=== PATIENT | male | born 1965 | race Caucasian/White ===

== ENCOUNTER 2023-12-31 12:43 | Emergency (ER) | payer MEDICAID, SELFPAY ==
[2023-12-31 12:35] VITALS: BP 119/79; PULSE 93; RESP 18; TEMP 36.4; O2SAT 99
[2023-12-31 12:39] VITALS: RESP 14
--- NOTE | 2023-12-31 13:06 | ED.GENADUL_ITS ---
Discharge Plan Disposition Patient Disposition: Home Condition: Stable Discharge Details Clinical Impression: Dizziness of unknown cause, Sciatica Primary Care Provider: Unknown,Unknown ED Provider: Severiano Palacios Home Meds and New Rx's Prescriptions: New methocarbamol 750 mg tablet 1,500 mg PO QID PRNQty: 90 0RF diclofenac sodium 1 % gel 2 g topical QID Qty: 100 0RF Rx Instructions: apply to single elbow, wrist or hand; for hand includes palm/fingers/back of hand prednisone 20 mg tablet 40 mg PO DAILY 6 Days Qty: 12 0RF Discharge Instructions Instructions: Diclofenac (Topical), Methocarbamol, Prednisone, Dizziness, Adult ED, Sciatica ED Additional Instructions: You were seen in the emergency department for your dizziness of unknown cause, this is not a cardiac cause of dizziness and your neurological exam is normal. I suspect this is a side effect of your long-acting Suboxone. Your EKG is negative and your blood work is all relatively normal, you may be mildly dehydrated. Your low back pain and numbness going down your leg is a pinched ne rve in your back called sciatica. Please use therapeutic dosing of Tylenol (acetamenophen) & Advil (ibuprofen) in an alternating fashion as follows: Take 1000mg of Tylenol every 6 hours without missing doses- that is 4 times per day. Cora in between the Tylenol dosings, take 400-600mg of Advil also on a 6 hour schedule, that is also 4 times per day. The daily maximum dosing of Tylenol is 4000mg, and the daily maximum dosing of Advil is 2400mg. This is safe to do for weeks. Please note that some common cold medications & prescription pain medications may contain acetamenophen and you need to read OTC drug labels and factor that in to maximum daily dosings. He may take the prescribed methocarbamol which is a muscle relaxer to help with your sciatica pain, you may apply an [id number] lidocaine patch to the area of pain for 12 hours each day, apply [id number] Voltaren gel to the area of pain each day for 12 hours. Perform gentle heat and massage to the area. The most definitive care for sciatica is following up with physical therapy, I have attached offices you may follow-up with. I have also sent a short burst of prednisone to help with your low back pain- start this medicine TOMORROW. Stand Alone Forms: Physical Therapy Referral Discharge Data Discharge Date/Time-TO BE ENTERED AT DEPARTURE: 12/31/23 15:27 HPI General Date/Time Provider Initiated Documentation: 12/31/23 12:49 . HPI Narrative: 58 year-old male presents to ED today by EMS with a chief complaint of dizziness, fatigue since starting subQ injected suboxone at [facility] on the - also states having pain in L gluteal area that travels down his leg with onset the past couple days. Quality described as generalized dizziness, no radiation to urinary retention, bowel incontinence, back pain with fever, midline back pain, inability to ambulate, chest pain, shortness of breath, diaphoresis, cough. Severity is described as severe. Palliating factors include nothing specific. Provoking factors include nothing specific. Events leading up to the incident/Associated Symptoms: Patients first dose of injected suboxone was the , no prior exposure to long-acting MAT drugs. Patient not anticoagulated. Related Data Home Medications Medication Instructions Recorded Confirmed diclofenac sodium 1 % topical gel 2 g topical QID #100 grams 12/31/23 methocarbamol 750 mg tablet 1,500 mg (2 x 750 mg) PO QID PRN 12/31/23 #90 tabs prednisone 20 mg tablet 40 mg (2 x 20 mg) PO DAILY 6 days 12/31/23 #12 tabs Previous Rx's Medication Instructions Recorded diclofenac sodium 1 % topical gel 2 g topical QID #100 grams 12/31/23 methocarbamol 750 mg tablet 1,500 mg (2 x 750 mg) PO QID PRN 12/31/23 #90 tabs prednisone 20 mg tablet 40 mg (2 x 20 mg) PO DAILY 6 days 12/31/23 #12 tabs General Stated Complaint: Dizzy/Sync RONNA: 3 Review of Systems All systems reviewed & are unremarkable except as noted in HPI and below Exam Narrative Exam Narrative: GENERAL APPEARANCE: Well-nourished, non-toxic, awake and alert, atraumatic, no acute distress. SKIN: Warm, pink, dry, intact, without rashes/lesions/ulcerations. HEAD: Normocephalic, atraumatic, normal hair distribution for gender/age. EYES: Pupils PERRLA, EOMs intact without nystagmus, normal conjunctiva, no exudates on lids/lashes. ENT: Nares patent, no circumoral cyanosis, no facial swelling NECK: Supple, trachea midline, painless cervical ROM. LUNGS/CHEST: Lungs CTA bilaterally, non-labored respirations, normal A/P diameter, symmetrical expansion, no chest wall deformity HEART (CV/PV): Regular rate and rhythm without murmur, no peripheral edema, no JVD. ABDOMEN: Soft, non-distended, no guarding. MSK: Normal ROM, no swelling/deformity to bilateral UEs or LEs, moving all extremities without weakness, no cyanosis, spine midline without tenderness, normal curvature. NEURO: Mental Status AAOx4 - alert to person, place, time, events No facial droop, no forehead involvement. Motor: No focal weakness - strength 5/5 in bilateral UEs and LEs, proximal and distal, symmetric. Sensory: sensation intact to light touch globally. Gait normal: patient ambulated without ataxia into ED room. PSYCH: euthymic, cooperative, pleasant, appropriate speech Course Vital Signs Vital signs: Vital Signs Temperature 36.4 C 12/31/23 12:35 Pulse 93 H 12/31/23 12:35 Respiratory Rate 18 12/31/23 12:35 Blood Pressure 119/79 12/31/23 12:35 Pulse Oximetry 99 12/31/23 12:35 Temperature 36.4 C 12/31/23 12:35 Temperature Source Skin 12/31/23 12:35 Pulse 93 H 12/31/23 12:35 Respiratory Rate 14 12/31/23 12:39 Respiratory Effort Normal, Non-Labored 12/31/23 12:39 Respiratory Depth Normal 12/31/23 12:39 Respiratory Pattern Normal 12/31/23 12:39 Blood Pressure 119/79 12/31/23 12:35 Blood Pressure Position Sitting 12/31/23 12:35 Pulse Oximetry 99 12/31/23 12:35 Oxygen Delivery Method Room Air 12/31/23 12:35 Oxygen Flow Rate 0 12/31/23 12:35 Medical Decision Making This dictation utilizes [id number]-by-[id number] dictation software and may contain unedited grammatical errors. 58 year-old male presents to ED today by EMS with a chief complaint of dizziness, fatigue since starting subQ injected suboxone at [facility] on the - also states having pain in L gluteal area that travels down his leg with onset the past couple days. Quality described as generalized dizziness, no radiation to urinary retention, bowel incontinence, back pain with fever, midline back pain, inability to ambulate, chest pain, shortness of breath, diaphoresis, cough. Severity is described as severe. Palliating factors include nothing specific. Provoking factors include nothing specific. Events leading up to the incident/Associated Symptoms: Patients first dose of injected suboxone was the nd, no prior exposure to long-acting MAT drugs. Patients' medical history: Polysubstance abuse, denies cardiac history. Family and social history: States no recent IVDU. Pertinent exam findings / vital signs include tenderness in the left gluteal region and sciatic distribution causing radicular pain, strength 5/5 in lower extremities, sensation intact, no saddle anesthesia, benign cardiopulmonary exam, benign abdomen, nontoxic vitals. Differential / pathologies of concern include sciatica. Diagnostic studies of: -CBC, CMP, troponin I, BNP, TSH, magnesium, urinalysis, UDS, EKG. -CBC shows No leukocytosis, mild anemia 10.8 -CMP shows mild elevation of BUN without MARGIE -TSH within normal limits -Troponin negative, BNP negative -UA benign -UDS positive for THC -EKG shows sinus rhythm at 82 bpm with P waves followed by narrow complex QRS with normal axis, good R wave progression, no T wave abnormalities, no ST changes of ischemia, normal QT QTc Interventions of: -PO Tylenol, Toradol, Cyclobenz, Lidoderm TOP, Prednisone PO. ED Course/Assessment/Plan: 58-year-old male presents by EMS for questionable dizzy spells, he is neuro intact, he recently started monthly injections of Sublocade, he is also end orsing left gluteal pain that radiates down his leg consistent with sciatica. His EKG is benign, cardiac workup is negative with reliable onset, CMP shows mild elevation of BUN and suspect possible dehydration, UDS is positive for THC, patient had no focal neurodeficits whatsoever, had completely stable vitals throughout the visit and I do not suspect any acute neurological or cardiac pathology for this subjective dizzy spells- question side effect of long-acting sublocade. Around 1510 the nurses reevaluated the patient and he stated he was having a dizzy spell, he grabbed the side of the bed and proceeded to voluntarily convulse but remained responsive without any change in his vital signs during all of this or his level of responsiveness, quickly subsided he was noted to have anxiety suspect possible pseudoseizure. Findings not consistent with cardiac syncope, seizure, neurological pathology. Disposition of Dizziness of Unknown Cause, Sciatica. Patient verbalized understanding of the plan and return to ED criteria and engaged in shared decision making. Medical Records Medical records reviewed: Yes I reviewed the patient's medical records. Lab Data Lab results reviewed: Yes I reviewed the patient's lab results. Labs: Laboratory Tests Range/Units 12/31/23 12/31/23 12/31/23 13:40 13:40 13:40 WBC (4.4-10.8) 10^3/uL 7.49 RBC (4.36-5.78) 10^6/uL 3.82 L Hgb (13.5-17.5) g/dL 10.8 L Hct (40.0-50.0) % 34.8 L MCV (80-95) fL 91 MCH (27.0-33.0) pg 28.3 MCHC (32.0-36.0) % 31.0 L RDW (11.8-14.1) % 14.3 H Plt Count (130-400) 10^3/uL 188 MPV (8.0-11.0) fL 8.8 Immature Gran % % 1.1 Neutrophils % % 60.9 Lymphocytes % % 20.0 Monocytes % % 13.2 Eosinophils % % 4.1 Basophils % % 0.7 Nucleated RBC % (0.0-0.3) % 0.0 Absolute Neutrophils (1.2-6.7) 10^3/uL 4.56 Absolute Lymphocytes (1.2-3.4) 10^3/uL 1.50 Absolute Monocytes (0.1-0.8) 10^3/uL 0.99 H Absolute Eosinophils (0.0-0.7) 10^3/uL 0.31 Absolute Basophils (0.0-0.2) 10^3/uL 0.05 Sodium (136-145) mmol/L 141 Potassium (3.5-5.1) mmol/L 4.2 Chloride (98-107) mmol/L 104 Carbon Dioxide (21.0-32.0) mmol/L 31.8 Anion Gap (3-11) mmol/L 5.2 BUN (7-18) mg/dL 22 H Creatinine (0.70-1.30) mg/dL 0.8 Est GFR (CKD-EPI 2020) (mL/min/1.73m2) 103.87 Glucose (74-106) mg/dL 112 H Calcium (8.5-10.1) mg/dL 8.8 Magnesium (1.8-2.4) mg/dL 1.8 Total Bilirubin (0.2-1.0) mg/dL 0.23 AST (15-37) U/L 26 ALT (16-63) U/L 61 Alkaline Phosphatase (46-116) U/L 87 Troponin I (< or =60) ng/L < 50 NT-Pro-B Natriuret Pep (<300) pg/mL 43 Cancelled Total Protein (6.4-8.2) g/dL 6.2 L Albumin (3.4-5.0) g/dL 3.1 L TSH (0.36-3.74) uIU/mL 1.62 Cancelled Urine Color (Yellow) Urine Clarity (Clear) Urine pH (5-8) Ur Specific [place] (1.005-1.025) Urine Protein (Neg-Trace) mg/dL Urine Ketones (Negative) mg/dL Urine Blood (Negative) Urine Nitrite (Negative) Urine Bilirubin (Negative) Urine Urobilinogen (Up to 0.2) mg/dL Ur Leukocyte Esterase (Negative) Urine Glucose (Negative) mg/dL Urine Opiates Screen (Negative) Urine Methadone Screen (Negative) Ur Barbiturates Screen (Negative) Ur Tricyclics Screen (Negative) Ur Amphetamines Screen (Negative) U Benzodiazepines Scrn (Negative) Urine Cocaine Screen (Negative) Ur THC Screen (Negative) Range/Units 12/31/23 13:55 WBC (4.4-10.8) 10^3/uL RBC (4.36-5.78) 10^6/uL Hgb (13.5-17.5) g/dL Hct (40.0-50.0) % MCV (80-95) fL MCH (27.0-33.0) pg MCHC (32.0-36.0) % RDW (11.8-14.1) % Plt Count (130-400) 10^3/uL MPV (8.0-11.0) fL Immature Gran % % Neutrophils % % Lymphocytes % % Monocytes % % Eosinophils % % Basophils % % Nucleated RBC % (0.0-0.3) % Absolute Neutrophils (1.2-6.7) 10^3/uL Absolute Lymphocytes (1.2-3.4) 10^3/uL Absolute Monocytes (0.1-0.8) 10^3/uL Absolute Eosinophils (0.0-0.7) 10^3/uL Absolute Basophils (0.0-0.2) 10^3/uL Sodium (136-145) mmol/L Potassium (3.5-5.1) mmol/L Chloride (98-107) mmol/L Carbon Dioxide (21.0-32.0) mmol/L Anion Gap (3-11) mmol/L BUN (7-18) mg/dL Creatinine (0.70-1.30) mg/dL Est GFR (CKD-EPI 2020) (mL/min/1.73m2) Glucose (74-106) mg/dL Calcium (8.5-10.1) mg/dL Magnesium (1.8-2.4) mg/dL Total Bilirubin (0.2-1.0) mg/dL AST (15-37) U/L ALT (16-63) U/L Alkaline Phosphatase (46-116) U/L Troponin I (< or =60) ng/L NT-Pro-B Natriuret Pep (<300) pg/mL Total Protein (6.4-8.2) g/dL Albumin (3.4-5.0) g/dL TSH (0.36-3.74) uIU/mL Urine Color (Yellow) Yellow Urine Clarity (Clear) Sl Cloudy Urine pH (5-8) 7.0 Ur Specific [place] (1.005-1.025) 1.020 Urine Protein (Neg-Trace) mg/dL Negative Urine Ketones (Negative) mg/dL Negative Urine Blood (Negative) Negative Urine Nitrite (Negative) Negative Urine Bilirubin (Negative) Negative Urine Urobilinogen (Up to 0.2) mg/dL 0.2 Ur Leukocyte Esterase (Negative) Negative Urine Glucose (Negative) mg/dL Negative Urine Opiates Screen (Negative) Negative Urine Methadone Screen (Negative) Negative Ur Barbiturates Screen (Negative) Negative Ur Tricyclics Screen (Negative) Negative Ur Amphetamines Screen (Negative) Negative U Benzodiazepines Scrn (Negative) Negative Urine Cocaine Screen (Negative) Negative Ur THC Screen (Negative) Positive A Quality:SDOH Health Related Social Needs: No Data to Display PFSH All Active Problems (Updated 12/31/23 @ 15:12 by SERG Astudillo) Sciatica (Acute) Dizziness of unknown cause (Acute) Social History Smoking/Tobacco Use Status: Never Smoking risk assessment performed?: Yes Alcohol Intake: former Drug use: Never Substance use type: former substance user, crack/cocaine and heroin Housing: apartment Do you feel safe at home: Yes Do you feel safe in your relationship?: Yes Additional Social history: Lives with sister
--- NOTE | 2023-12-31 13:15 | RT.EKG_ITS ---
APPROVED REPORT Exam: Resting ECG Reason for Exam: dizziness Patient Location: E HR:82 bpm ECG Measurements Heart Rate 82 AXIS WI 156 P 76 QRSd 98 QRS 61 QT 353 T 57 QTc 413 Conclusion Sinus rhythm. 82 normal axis no stemi
[2023-12-31 13:26] VITALS: BP 94/58; PULSE 93; O2SAT 95
[2023-12-31 13:47] LABS: Abs Immature Grans 0.08 10^3/uL (0.0-0.06); Absolute Basophil Count 0.05 10^3/uL (0.0-0.2); Absolute Eosinophil Count 0.31 10^3/uL (0.0-0.7); Absolute Monocyte Count 0.99 10^3/uL (0.1-0.8); Absolute Neutrophil Count 4.56 10^3/uL (1.2-6.7); Basophils % 0.7 %; Eosinophils % 4.1 %; HCT 34.8 % (40.0-50.0); HGB 10.8 g/dL (13.5-17.5); Immature Grans % 1.1 %; MCH 28.3 pg (27.0-33.0); MCV 91 fL (80-95); MPV 8.8 fL (8.0-11.0); Monocytes % 13.2 %; Neutrophils % 60.9 %; Platelet Count 188 10^3/uL (130-400); RBC 3.82 10^6/uL (4.36-5.78); RDW 14.3 % (11.8-14.1); RDW-SD 47.5 fL; WBC 7.49 10^3/uL (4.4-10.8)
[2023-12-31 14:07] LABS: Bilirubin Negative (Negative); Blood Negative (Negative); Clarity Sl Cloudy (Clear); Glucose Negative (Negative); Ketones Negative (Negative); Leukocyte Esterase Negative (Negative); Nitrite Negative (Negative); Urobilinogen 0.2 mg/dL (Up to 0.2)
[2023-12-31 14:14] LABS: ALT 61 U/L (16-63); AST 26 U/L (15-37); Albumin 3.1 g/dL (3.4-5.0); Alkaline Phosphatase 87 U/L (46-116); Anion Gap 5.2 mmol/L (3-11); BUN 22 mg/dL (7-18); Bilirubin, Total 0.23 mg/dL (0.2-1.0); CO2 31.8 mmol/L (21.0-32.0); CREATININE 0.8 mg/dL (0.70-1.30); Calcium 8.8 mg/dL (8.5-10.1); Chloride 104 mmol/L (98-107); Estimated GFR 103.87 (mL/min/1.73m2); Glucose 112 mg/dL (74-106); Magnesium 1.8 mg/dL (1.8-2.4); NT-proBNP 43 pg/mL (<300); Potassium 4.2 mmol/L (3.5-5.1); Sodium 141 mmol/L (136-145); TSH (W/Ref FT4) 1.62 uIU/mL (0.36-3.74); Total Protein 6.2 g/dL (6.4-8.2); Troponin I < 50 ng/L (< or =60)
[2023-12-31 14:19] LABS: *AMPHETAMINES SCREEN URINE Negative (Negative); *BARBITURATES SCREEN URINE Negative (Negative); *BENZODIAZEPINES SCREEN URINE Negative (Negative); Cannabinoids THC Positive (Negative); Cocaine Screen,Urine Negative (Negative); METHADONE URINE SCREEN Negative (Negative); OPIATES URINE SCREEN Negative (Negative)
[2023-12-31 14:20] LABS: Tricyclic Antidepressants Negative (Negative)
[2023-12-31 14:34] VITALS: BP 91/52; PULSE 78; O2SAT 98
[2023-12-31 15:02] VITALS: BP 114/74; PULSE 78; RESP 18; O2SAT 98
[2023-12-31 15:24] VITALS: BP 113/72; PULSE 76; RESP 16; O2SAT 95
[2023-12-31] MEDS: Cyclobenzaprine 10 MG TAB PO (15:32)
[2023-12-31] MEDS: Acetaminophen 500 MG TAB 1000 MG PO (15:32)
[2023-12-31] MEDS: Ketorolac 10 MG TAB PO (15:32)
[2023-12-31] MEDS: predniSONE 20 MG TAB 40 MG PO (15:34)
[2023-12-31] MEDS: Lidocaine 5% Patch 1 PATCH TP (15:39)
== END 2023-12-31 15:27 | disposition home or self-care (01) ==
PROVIDERS: Emergency Provider Physician Assistant
DX: R42 Dizziness and giddiness (principal); M54.42 Lumbago with sciatica, left side; Z79.899 Other long term (current) drug therapy
CPT/HCPCS: 80053; 80307; 93005; 99284; 81003; 83735; 83880; 84443; 84484; 85025; 93010; J7512